=== PATIENT | female | born 1955 | race Caucasian/White ===

== ENCOUNTER → 2016-12-19 | Outpatient (CLI) | payer MEDICAID, SELFPAY ==
--- NOTE | 2016-12-20 03:19 | REP ---
Clinical: Palpable mass right clavicle. Technique: AP and axial views of the right and left clavicle. Findings: Age-related changes are appreciated. The bilateral sternoclavicular and acromioclavicular joints are normal for age. The osseous structures are unremarkable. Surrounding soft tissues are grossly normal by radiographic evaluation. Impression: Age-appropriate bilateral clavicle series Signed by Thomas Calderón MD 12/20/2016 03:11 A
== END ==
LOC: M RAD 12:33
PROVIDERS: ATTEND Nurse Practitioner Family
DX: M89.311 Hypertrophy of bone, right shoulder (principal)

== ENCOUNTER → 2017-01-12 | Outpatient (REF) | payer OTHER | LOC: M SFHCWAGY 09:07 | PROVIDERS: ATTEND Nurse Practitioner Family | DX: Z01.419 Encounter for gynecological examination (general) (routine) without abnormal findings (principal) ==

== ENCOUNTER → 2017-01-20 | Outpatient (CLI) | payer OTHER ==
--- NOTE | 2017-01-20 11:32 | REPMRS ---
Patient History The patient states she had a clinical breast exam in 01/11 Patient is postmenopausal. No known family history of cancer. Digital Woman Screen Mammo: January 20, 2017 - Exam #: [id number] Bilateral CC and MLO view(s) were taken. Technologist: Melinda Elliott, Technologist Prior study comparison: November 28, 2013, digital woman screen mammo performed at [facility]. September 30, 2011, bilateral bilat screen digital mammo performed at [facility]. August 26, 2010, bilateral bilat screen digital mammo performed at [facility]. FINDINGS: The breast tissue is heterogeneously dense. This may lower the sensitivity of mammography. There is a moderate amount of heterogeneously dense fibroglandular tissue which is fairly symmetric. There is no interval development of dominant mass, architectural distortion, or clustered microcalcification typical of malignancy. There has been no change in the appearance of the mammogram from the prior studies. ASSESSMENT: BI-RADS/ACR category 1 mammogram. Negative. Recommendation Routine screening mammogram of both breasts in 1 year (for women over age 40). This mammogram was interpreted with the aid of an FDA-approved computer-aided dectection system. Electronically Signed By: Alireza Vazquez MD 01/20/17 [id number]
== END ==
LOC: M WHC 10:29
PROVIDERS: ATTEND Nurse Practitioner Family
DX: Z12.31 Encounter for screening mammogram for malignant neoplasm of breast (principal)

== ENCOUNTER 2017-04-06 12:52 | Outpatient (CLI) | payer OTHER ==
[~2017-04-06] VITALS: Ht 162.6 cm; Wt 59.0 kg
[~2017-04-06 12:52] MED LIST: CALC600T31 PO; FOSA70TA PO; LEVO100T5 PO; MELO7.5T7 PO; MULT1TAB10 PO; OMEG100011 PO; OXYC20TA2 PO; PANT40TA2 PO; POLYPOW9 PO; SIMV40TA2 PO
[2017-04-06] MEDS ORDERED: NS 1,000 ML IV ONE (13:15)
[2017-04-06] MEDS ORDERED: PROPOFOL 200 MG/20 ML VIAL As Ordered ONE (14:27)
[2017-04-06] MEDS ORDERED: LIDOCAINE 2% INJ 100 MG/5 ML SDV (FOR ANES.) As Ordered ONE (14:27)
--- NOTE | 2017-04-06 15:17 | ROOR ---
Patient Name: Toney Stewart Procedure Date: 04/06/2017 3:00 PM Date of : 1955 Age: 61 Room: [facility] Gender: Female Note Status: Finalized Procedure: Colonoscopy Indications: Screening for colorectal malignant neoplasm Providers: Nehemias Hull Jr, MD Referring MD: NIRAV RAMIREZ MD Requesting Provider: Medicines: Propofol per Anesthesia Complications: No immediate complications. Procedure: Pre-Anesthesia Assessment: - Prior to the procedure, a History and Physical was performed, and patient medications and allergies were reviewed. The patient is competent. The risks and benefits of the procedure and the sedation options and risks were discussed with the patient. All questions were answered and informed consent was obtained. Patient identification and proposed procedure were verified by the physician and the nurse in the pre-procedure area and in the procedure room. Mental Status Examination: alert and oriented. Airway Examination: normal oropharyngeal airway and neck mobility. Respiratory Examination: clear to auscultation. CV Examination: normal. ASA Grade Assessment: II - A patient with mild systemic disease. After reviewing the risks and benefits, the patient was deemed in satisfactory condition to undergo the procedure. The anesthesia plan was to use moderate sedation / analgesia (conscious sedation). Immediately prior to administration of medications, the patient was re-assessed for adequacy to receive sedatives. The heart rate, respiratory rate, oxygen saturations, blood pressure, adequacy of pulmonary ventilation, and response to care were monitored throughout the procedure. The physical status of the patient was re-assessed after the procedure. The Colonoscope was introduced through the anus and advanced to the cecum, identified by appendiceal orifice and ileocecal valve. The quality of the bowel preparation was good. The colonoscopy was performed without difficulty. The patient tolerated the procedure well. Findings: The perianal and digital rectal examinations were normal. Pertinent negatives include normal sphincter tone, no palpable rectal lesions and no anal lesion or abnormality was detected. The rectum, recto-sigmoid colon, sigmoid colon, descending colon, transverse colon, ascending colon, cecum, appendiceal orifice and ileocecal valve appeared normal. Impression: - The rectum, recto-sigmoid colon, sigmoid colon, descending colon, transverse colon, ascending colon, cecum, appendiceal orifice and ileocecal valve are normal. - No specimens collected. Recommendation: - Repeat colonoscopy in 10 years for screening purposes. Nehemias Hull MD Nehemias Hull Jr, MD 04/06/2017 3:16:27 PM This report has been signed electronically. Number of Addenda: 0 Note Initiated On: 04/06/2017 3:00 PM Estimated Blood Loss: Estimated blood loss: none.
[2017-04-06 15:44] VITALS: BP 134/71
== END 2017-04-06 15:47 | disposition home or self-care (01) ==
LOC: M OPP 12:52
PROVIDERS: ATTEND Surgery
DX: K59.00 Constipation, unspecified (principal); E78.5 Hyperlipidemia, unspecified; E05.90 Thyrotoxicosis, unspecified without thyrotoxic crisis or storm; E03.9 Hypothyroidism, unspecified; K21.9 Gastro-esophageal reflux disease without esophagitis; R12 Heartburn; F41.9 Anxiety disorder, unspecified; F32.9 Major depressive disorder, single episode, unspecified; M19.90 Unspecified osteoarthritis, unspecified site; M54.9 Dorsalgia, unspecified; M81.0 Age-related osteoporosis without current pathological fracture; Z78.0 Asymptomatic menopausal state; Z92.3 Personal history of irradiation; F17.210 Nicotine dependence, cigarettes, uncomplicated; Z79.899 Other long term (current) drug therapy

== ENCOUNTER → 2017-12-26 | Outpatient (CLI) | payer OTHER ==
[~2017-12-26] MED LIST changes: -CALC600T31 PO; -FOSA70TA PO; +ISOVUE-370 76% 100ML VIAL (Q9967) As Ordered; -LEVO100T5 PO; -MELO7.5T7 PO; -MULT1TAB10 PO; -OMEG100011 PO; -OXYC20TA2 PO; -PANT40TA2 PO; -POLYPOW9 PO; -SIMV40TA2 PO
== END ==
LOC: M RAD 09:25
DX: K13.70 Unspecified lesions of oral mucosa (principal)
CPT/HCPCS: Q9967

== ENCOUNTER → 2019-01-25 | Outpatient (REF) | payer OTHER ==
[~2019-01-25] MED LIST changes: +CALC600T31 PO; +FOSA70TA PO; -ISOVUE-370 76% 100ML VIAL (Q9967) As Ordered; +LEVO100T5 PO; +MELO7.5T7 PO; +MULT1TAB10 PO; +OMEG100011 PO; +OXYC20TA2 PO; +PANT40TA3 PO; +POLYPOW9 PO; +SIMV40TA2 PO
[2019-01-29 14:11] LABS: HPV HYBRID CAPTURE II Negative (Negative)
== END ==
LOC: M SFHCWAGY 10:36
PROVIDERS: ATTEND Nurse Practitioner Family
DX: R87.610 Atypical squamous cells of undetermined significance on cytologic smear of cervix (ASC-US) (principal); Z12.4 Encounter for screening for malignant neoplasm of cervix

== ENCOUNTER → 2019-01-25 | Outpatient (CLI) | payer OTHER ==
--- NOTE | 2019-01-25 12:25 | REPMRS ---
Patient History The patient states she had a clinical breast exam in 12/2018. Patient is postmenopausal. No known family history of cancer. No Hormone Replacement Therapy 3D TOMOSYNTHESIS WAS PERFORMED. Digital Woman Screen Mammo: January 25, 2019 - Exam #: [id number] Bilateral CC and MLO view(s) were taken. Technologist: Jodi Giordano, Technologist Prior study comparison: January 20, 2017, digital woman screen mammo performed at [facility]. November 28, 2013, digital woman screen mammo performed at [facility]. FINDINGS: The breast tissue is heterogeneously dense. This may lower the sensitivity of mammography. There has been no change in the appearance of the mammogram from the prior studies. There is a moderate amount of residual fibroglandular tissue which is fairly symmetric. There is no interval development of dominant mass, areas of architectural distortion, or clustered microcalcification typical of malignancy. Assessment: BI-RADS/ACR category 1 mammogram. Negative Mammogram. Recommendation Routine screening mammogram in 1 year (for women over age 40). This mammogram was interpreted with the aid of an FDA-approved computer-aided dectection system. Electronically Signed By: Des Brito MD 01/25/19 [id number]
== END ==
LOC: M WHC 10:22
PROVIDERS: ATTEND Nurse Practitioner Family
DX: Z12.31 Encounter for screening mammogram for malignant neoplasm of breast (principal); Z78.0 Asymptomatic menopausal state

== ENCOUNTER → 2019-02-13 | Outpatient (CLI) | payer OTHER ==
--- NOTE | 2019-02-13 13:44 | REP ---
Lumbar spine three views: Comparison is 12/16/2014. There are bilateral laminectomies at L 3- L4-L5 - S1. This is unchanged. There are bilateral pedicle screws at these same levels. This is unchanged. There are intervertebral disc spacers at L3-4, L 4-5 and L5- S1. This is unchanged. Bilateral bone grafts are again identified spanning L3-S1 bilaterally. Vertebral body heights and alignment are normal and unchanged. There is no listhesis. Anterior osteophytic formation is again identified throughout the lumbar spine compatible with multilevel degenerative disc disease, unchanged. Impression: Surgical fusion of the lumbar spine at L3-S1. Intervertebral disc spacers at these same levels. No listhesis. Vertebral body heights are normal. No significant interval change. Electronically Signed by Des Rivera MD 02/13/2019 01:36 P
== END ==
LOC: M RAD 10:06
PROVIDERS: ATTEND Internal Medicine
DX: Z98.1 Arthrodesis status (principal); M25.78 Osteophyte, vertebrae

== ENCOUNTER 2019-03-28 10:57 | Day surgery (SDC) | payer OTHER ==
[~2019-03-28] VITALS: Ht 165.1 cm; Wt 59.0 kg
[~2019-03-28 10:57] MED LIST changes: +CALC600T60 PO; +MIRA3350 PO; +MOBI4TAB PO; +MULTCAP PO; +NS 1,000 ML IV ONE; +OXYC5CAP56 PO
--- NOTE | 2019-03-28 12:32 | ROOR ---
Patient Name: Toney Stewart Procedure Date: 03/28/2019 12:20 PM Date of : 1955 Age: 63 Room: [facility] Gender: Female Note Status: Finalized Procedure: Upper GI endoscopy Indications: Suspected esophageal reflux Providers: Nehemias Hull Jr, MD Referring MD: NIRAV RAMIREZ NP Requesting Provider: Medicines: Propofol per Anesthesia Complications: No immediate complications. Procedure: Pre-Anesthesia Assessment: - Prior to the procedure, a History and Physical was performed, and patient medications and allergies were reviewed. The patient is competent. The risks and benefits of the procedure and the sedation options and risks were discussed with the patient. All questions were answered and informed consent was obtained. Patient identification and proposed procedure were verified by the physician and the nurse in the pre-procedure area and in the procedure room. Mental Status Examination: alert and oriented. Airway Examination: normal oropharyngeal airway and neck mobility. Respiratory Examination: clear to auscultation. CV Examination: normal. ASA Grade Assessment: II - A patient with mild systemic disease. After reviewing the risks and benefits, the patient was deemed in satisfactory condition to undergo the procedure. The anesthesia plan was to use moderate sedation / analgesia (conscious sedation). Immediately prior to administration of medications, the patient was re-assessed for adequacy to receive sedatives. The heart rate, respiratory rate, oxygen saturations, blood pressure, adequacy of pulmonary ventilation, and response to care were monitored throughout the procedure. The physical status of the patient was re-assessed after the procedure. The Endoscope was introduced through the mouth, and advanced to the second part of duodenum. The upper GI endoscopy was accomplished without difficulty. The patient tolerated the procedure well. Findings: The upper third of the esophagus, middle third of the esophagus and lower third of the esophagus were normal. The cardia, gastric fundus, gastric body, gastric antrum, prepyloric region of the stomach and pylorus were normal. Biopsies were taken with a cold forceps for histology. The duodenal bulb, first portion of the duodenum and second portion of the duodenum were normal. Impression: - Normal upper third of esophagus, middle third of esophagus and lower third of esophagus. - Normal cardia, gastric fundus, gastric body, antrum, prepyloric region of the stomach and pylorus. Biopsied. - Normal duodenal bulb, first portion of the duodenum and second portion of the duodenum. Recommendation: - Discharge patient to home (ambulatory). - Return to my office as previously scheduled. Nehemias Hull MD Nehemias Hull Jr, MD 03/28/2019 12:32:00 PM Electronically signed by Nehemias Hull Jr, MD Number of Addenda: 0 Note Initiated On: 03/28/2019 12:20 PM Estimated Blood Loss: Estimated blood loss: none.
[2019-03-28 13:02] VITALS: BP 124/71
== END 2019-03-28 13:05 | disposition home or self-care (01) ==
LOC: M OPP 10:57
PROVIDERS: ATTEND Surgery
DX: K21.9 Gastro-esophageal reflux disease without esophagitis (principal); R10.9 Unspecified abdominal pain; E78.00 Pure hypercholesterolemia, unspecified; E03.9 Hypothyroidism, unspecified; R12 Heartburn; F32.9 Major depressive disorder, single episode, unspecified; F17.210 Nicotine dependence, cigarettes, uncomplicated; M54.9 Dorsalgia, unspecified; G89.29 Other chronic pain; Z79.891 Long term (current) use of opiate analgesic; Z79.899 Other long term (current) drug therapy

== ENCOUNTER → 2021-05-28 | Outpatient (CLI) | payer MEDICARE, MEDICAID ==
[~2021-05-28] MED LIST changes: -NS 1,000 ML IV ONE; +PANT40TA29 PO; -PANT40TA3 PO; -SIMV40TA2 PO; +SIMV40TA20 PO
--- NOTE | 2021-05-28 14:56 | REP ---
INDICATION: LEFT CHEST WALL PAIN. COMPARISON: 06/26/2014 FINDINGS: The superior mediastinal structures are midline. The cardiac silhouette is unremarkable in size, shape, and position. The diaphragmatic surfaces of the lungs are regular, and the costophrenic angles are clear. The pulmonary kim are clear. The imaged osseous structures are intact. Since last examination a dorsal column stimulator has been placed the tip of which is at the level of the superior endplate of T9 IMPRESSION: There is no acute cardiopulmonary disease. <Electronically signed by Theo Archuleta > 05/28/21 [id number]
== END ==
LOC: M RAD 14:24
PROVIDERS: ATTEND Physician Assistant Medical
DX: R07.89 Other chest pain (principal)

== ENCOUNTER → 2021-06-03 | Outpatient (CLI) | payer MEDICARE, MEDICAID ==
--- NOTE | 2021-06-03 13:18 | REPMRS ---
Patient History The patient states she has not had a clinical breast exam in over a year. No known family history of cancer. No Hormone Replacement Therapy Patient states no breast complaints today. Patient has signed MRS History Sheet. Digital Woman Screen Mammo: June 03, 2021 - Exam #: [id number] Bilateral CC and MLO view(s) were taken. Technologist: Melinda Elliott, Technologist Prior study comparison: January 25, 2019, bilateral digital woman screen mammo performed at [facility]. January 20, 2017, digital woman screen mammo performed at [facility]. November 28, 2013, digital woman screen mammo performed at [facility]. FINDINGS: The breast tissue is heterogeneously dense. This may lower the sensitivity of mammography. The Volpara volumetric breast density category is: C. There is a moderate amount of heterogeneously dense fibroglandular tissue which is fairly symmetric. There is no interval development of dominant mass, architectural distortion, or grouped microcalcification typical of malignancy. There has been no change in the appearance of the mammogram from the prior studies. 3-D tomosynthesis shows no additional findings. Assessment: BI-RADS/ACR category 1 mammogram. Negative Mammogram. Recommendation Routine screening mammogram of both breasts in 1 year (for women over age 40). This patient's [facility] Lifetime Breast Cancer RIsk is estimated at 4.8 %. This mammogram was interpreted with the aid of an FDA-approved computer-aided dectection system. Electronically Signed By: Alireza Vazquez MD 06/03/21 [id number]
== END ==
LOC: M WHC 12:44
PROVIDERS: ATTEND Physician Assistant Medical
DX: Z12.31 Encounter for screening mammogram for malignant neoplasm of breast (principal)

== ENCOUNTER → 2022-02-10 | Outpatient (REF) | payer MEDICARE, MEDICAID ==
[2022-02-10 16:48] LABS: ALBUMIN 3.8 GM/DL (3.2-5.2); BLOOD UREA NITROGEN 10 MG/DL (7-18); CALCIUM LEVEL 8.8 MG/DL (8.8-10.2); CARBON DIOXIDE LEVEL 27 MEQ/L (21-32); CHLORIDE LEVEL 108 MEQ/L (98-107); CREATININE FOR GFR 0.72 MG/DL (0.55-1.30); GLOMERULAR FILTRATION RATE > 60.0 (>45); GLUCOSE, FASTING 90 MG/DL (70-100); PHOSPHORUS LEVEL 3.7 MG/DL (2.5-4.9); POTASSIUM SERUM 4.3 MEQ/L (3.5-5.1); SODIUM LEVEL 141 MEQ/L (136-145)
== END ==
LOC: M WUC 15:56
PROVIDERS: ATTEND Nurse Practitioner Family
DX: M96.1 Postlaminectomy syndrome, not elsewhere classified (principal); M54.50 Low back pain, unspecified

== ENCOUNTER → 2022-02-27 | Outpatient (CLI) | payer MEDICARE, MEDICAID | LOC: M LABSMTC 09:21 | PROVIDERS: ATTEND Anesthesiology | DX: Z20.828 Contact with and (suspected) exposure to other viral communicable diseases (principal); Z11.59 Encounter for screening for other viral diseases ==

== ENCOUNTER 2022-03-03 09:12 | Day surgery (SDC) | payer MEDICARE, MEDICAID ==
[~2022-03-03] VITALS: Ht 165.1 cm; Wt 56.7 kg
[~2022-03-03 09:12] MED LIST changes: +NS 1,000 ML IV ONE
[2022-03-03] MEDS ORDERED: MORP-69 PO (10:28)
[2022-03-03] MEDS ORDERED: propofoL 200 MG/20 ML VIAL As Ordered ONE ×2 (11:11→11:12)
[2022-03-03] MEDS ORDERED: LIDOCAINE 2% INJ 100 MG/5 ML SYRINGE As Ordered ONE (11:12)
[2022-03-03] MEDS ORDERED: ePHEDrine SULFATE 25 MG/5 ML(5MG/ML) SYRINGE As Ordered ONE (11:22)
[2022-03-03] MEDS ORDERED: fentaNYL 100 MCG/2 ML INJECTION As Ordered ONE (11:30)
[2022-03-03 11:40] VITALS: BP 116/71
== END 2022-03-03 11:52 | disposition home or self-care (01) ==
LOC: M OPP 09:12
PROVIDERS: ATTEND Surgery
DX: K59.00 Constipation, unspecified (principal); R10.84 Generalized abdominal pain; K29.70 Gastritis, unspecified, without bleeding; B96.81 Helicobacter pylori [H. pylori] as the cause of diseases classified elsewhere; R13.10 Dysphagia, unspecified; E89.0 Postprocedural hypothyroidism; F17.210 Nicotine dependence, cigarettes, uncomplicated; Z79.02 Long term (current) use of antithrombotics/antiplatelets; Z79.891 Long term (current) use of opiate analgesic; Z79.899 Other long term (current) drug therapy
CPT/HCPCS: 43239; 45378; 88305; 88342; J3010

== ENCOUNTER → 2022-10-05 | Outpatient (CLI) | payer MEDICARE, MEDICAID ==
[~2022-10-05] MED LIST changes: +ALEN70TA87 PO; -FOSA70TA PO; +MORP-69 PO; -NS 1,000 ML IV ONE
== END ==
LOC: M PLAIMG 10:08
PROVIDERS: ATTEND Pain Medicine Interventional Pain Medicine
DX: M50.122 Cervical disc disorder at C5-C6 level with radiculopathy (principal); M50.123 Cervical disc disorder at C6-C7 level with radiculopathy

== ENCOUNTER → 2022-11-14 | Outpatient (CLI) | payer MEDICARE, MEDICAID | LOC: M WHC 10:10 | PROVIDERS: ATTEND Physician Assistant | DX: M81.0 Age-related osteoporosis without current pathological fracture (principal) ==

== ENCOUNTER → 2023-01-11 | Outpatient (CLI) | payer MEDICAID, MEDICARE | LOC: M WHC 14:46 | PROVIDERS: ATTEND Nurse Practitioner Family | DX: Z12.31 Encounter for screening mammogram for malignant neoplasm of breast (principal) ==

== ENCOUNTER → 2023-10-19 | Outpatient (CLI) | payer MEDICARE, MEDICAID ==
[2023-10-19 11:15] LABS: HEMATOCRIT 39.6 % (36.0-47.0); HEMOGLOBIN 13.5 g/dl (12.0-15.5); MEAN CORPUSCULAR HEMOGLOBIN 31.4 pg (27.0-33.0); MEAN CORPUSCULAR HGB CONC 34.1 g/dl (32.0-36.5); MEAN CORPUSCULAR VOLUME 92.1 fl (80.0-96.0); PLATELET COUNT, AUTOMATED 182 10^3/uL (150-450); WHITE BLOOD COUNT 5.1 10^3/uL (4.0-10.0)
[2023-10-19 11:55] LABS: ALBUMIN 3.7 G/DL (3.2-5.2); ALKALINE PHOSPHATASE 61 U/L (46-116); ALT/SGPT 21 U/L (7.0-40); AST/SGOT 21 U/L (<34); BILIRUBIN,TOTAL 0.8 MG/DL (0.3-1.2); BLOOD UREA NITROGEN 10 MG/DL (9-23); CALCIUM LEVEL 8.7 MG/DL (8.3-10.6); CARBON DIOXIDE LEVEL 30 MMOL/L (20-31); CHLORIDE LEVEL 109 MMOL/L (98-107); CHOLESTEROL LEVEL 217 MG/DL (<200); CHOLESTEROL RISK RATIO 3.27 (<5); CREATININE FOR GFR 0.62 MG/DL (0.55-1.30); FREE T4 1.43 NG/DL (0.89-1.76); GLOMERULAR FILTRATION RATE > 60.0 (>45); GLUCOSE, FASTING 82 MG/DL (74-106); HDL CHOLESTEROL 66.2 MG/DL (>40); IRON (FE) 101 UG/DL (50-170); NON-HDL-C 150.8 MG/DL; PERCENT SATURATION 39.9 % (13.2-45.0); POTASSIUM SERUM 4.4 MMOL/L (3.5-5.1); SODIUM LEVEL 142 MMOL/L (136-145); THYROID STIMULATING HORMONE 1.374 uIU/ML (0.55-4.78); TOTAL IRON BINDING CAPACITY 253 UG/DL (250-425); TOTAL PROTEIN 6.5 G/DL (5.7-8.2); TRIGLYCERIDES LEVEL 109 MG/DL (<150)
[2023-10-19 11:56] LABS: FERRITIN 120.5 NG/ML (7.3-270.7); TOTAL 25(OH) VITAMIN D 30.8 NG/ML (20.0-100.0)
== END ==
LOC: M WUC 08:24
PROVIDERS: ATTEND Nurse Practitioner Adult Health
DX: I10 Essential (primary) hypertension (principal); E78.5 Hyperlipidemia, unspecified; E03.9 Hypothyroidism, unspecified; E55.9 Vitamin D deficiency, unspecified; F17.293 Nicotine dependence, other tobacco product, with withdrawal; K21.9 Gastro-esophageal reflux disease without esophagitis; Z79.899 Other long term (current) drug therapy; Z86.39 Personal history of other endocrine, nutritional and metabolic disease

== ENCOUNTER → 2024-08-22 | Outpatient (CLI) | payer MEDICARE, MEDICAID | LOC: M RAD 12:39 | DX: M25.561 Pain in right knee (principal) ==

== ENCOUNTER → 2025-04-25 | Outpatient (CLI) | payer MEDICARE, MEDICAID | LOC: M WHC 10:08 | PROVIDERS: ATTEND Nurse Practitioner Family | DX: Z12.31 Encounter for screening mammogram for malignant neoplasm of breast (principal); R92.333 Mammographic heterogeneous density, bilateral breasts ==

== ENCOUNTER → 2025-06-02 | Outpatient (CLI) | payer MEDICARE, MEDICAID | LOC: M WHC 14:11 | DX: Z13.820 Encounter for screening for osteoporosis (principal); M85.89 Other specified disorders of bone density and structure, multiple sites ==

== ENCOUNTER → 2025-06-05 | Outpatient (CLI) | payer MEDICARE, MEDICAID | LOC: M RAD 15:27 | DX: Z12.2 Encounter for screening for malignant neoplasm of respiratory organs (principal); F17.210 Nicotine dependence, cigarettes, uncomplicated ==